=== PATIENT | male | born 2000 | race Caucasian/White ===

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

== ENCOUNTER 2023-03-04 15:19 | Emergency (ER) | payer MEDICAID ==
[2023-03-04 15:30] VITALS: BP 134/76
[2023-03-04] MEDS ORDERED: PROPARACAINE 0.5% OPHTH DROPS 15 ML EACHEYE STA (15:37)
[2023-03-04] MEDS ORDERED: ERYTHROMYCIN OPHTH OINT 1 GM TUBE LEFTEYE STA (16:14)
--- NOTE | 2023-03-04 16:14 | ED Physician Documentation ---
PD HPI OPHTHO - Stated complaint Stated Complaint: LT EYE PX, PRESSURE - Chief complaint Chief Complaint: Heent - History obtained from History obtained from: Patient - Additional information Additional information: He was standing by [employer] 2 days ago and there was a pop and some debris flew in his left eye. His vision is unaffected, it is just irritated. PD PAST MEDICAL HISTORY - Past Medical History Past Medical History: No Cardiovascular: None Respiratory: None Neuro: None Endocrine/Autoimmune: None GI: None : None HEENT: None Psych: None Musculoskeletal: None Derm: None - Past Surgical History Past Surgical History: No - Present Medications Home Medications: Ambulatory Orders Medication Instructions Recorded Confirmed Erythromycin Base [Erythromycin 1 appful OP 5XD 7 Days #1 gm 03/04/23 Ophthalmic Ointment] - Allergies Allergies/Adverse Reactions: Allergies Allergy/AdvReac Type Severity Reaction Status Date / Time No Known Drug Allergies Allergy Verified 03/04/23 15:30 - Social History Does the pt smoke?: No Smoking Status: Never smoker Does the pt drink ETOH?: No Does the pt have substance abuse?: No - Immunizations Immunizations are current?: Yes - POLST Patient has POLST: No PD ED PE NORMAL - Vitals Vital signs reviewed: Yes - General General: Alert and oriented X 3, No acute distress - HEENT HEENT: PERRL, EOMI, Other (Medially there is a scleral abrasion. No corneal fluorescein uptake. Globes are soft. Vision per the RN is 20/20.) - Neuro Neuro: Alert and oriented X 3, Normal speech Results - Vitals Vitals: Vital Signs - 24 hr 03/04/23 03/04/23 15:21 15:32 Temperature 36.8 C Heart Rate 86 Respiratory 16 16 Rate Blood Pressure 134/76 H O2 Saturation 98 Oxygen O2 Source Room air Departure - Departure Disposition: 01 Home, Self Care Clinical Impression: Injury of sclera Condition: Good Record reviewed to determine appropriate education?: Yes Instructions: Black Eye, ED Eye Injury Subconj Hemorrhage Follow-Up: Bereket Denise MD [Provider Admit Priv/Credential] - Prescriptions: Erythromycin Base [Erythromycin Ophthalmic Ointment] 1 appful OP 5XD 7 Days #1 gm Comments: Use the antibiotic ointment 5 times a day for the next 5 days or so. Return if worsening. If not better in the next couple of days. Follow-up with the eye doctor, the phone numbers on this form.
== END 2023-03-04 17:01 | disposition home or self-care (01) ==
LOC: ED 15:19
DX: S05.8X2A Other injuries of left eye and orbit, initial encounter (principal); W45.8XXA Other foreign body or object entering through skin, initial encounter; Y93.89 Activity, other specified; Y92.89 Other specified places as the place of occurrence of the external cause
CPT/HCPCS: 99282; 99283; J3490